=== PATIENT | male | born 1980 | race Caucasian/White ===

== ENCOUNTER 2018-05-08 11:39 | Emergency (ER) | payer MEDICARE, OTHER ==
[~2018-05-08] VITALS: Ht 180.3 cm; Wt 80.3 kg
[~2018-05-08 11:39] MED LIST: CEFD300 PO; CEPH500 PO; CYCL10 PO; Ciprodex Otic7.5 ML LEFTEAR; FAMC250 PO; FANAPT; FANAPT2 MG PO; HYDACE5325 PO; INVEGA SUS156 MG/1 M IM; NAPR500 PO; NAPR550 PO; OLAN5A MM; OLANZAPINE15 MG PO; OXYACE5T PO; PENVK500 PO; RISP1; RISP1 PO; RXHYD5325 PO; SULTRIDS PO; Zithromax250 MG PO; Zofran Odt8 MG SL; [UNRECOGNIZED DRUG - REMARK]; [UNRECOGNIZED DRUG - REMARK]; [UNRECOGNIZED DRUG - REMARK]
[2018-05-17] MEDS ORDERED: OLAN10 PO (17:57)
== END 2018-05-08 14:20 | disposition left against medical advice (07) ==
LOC: ER 11:39
DX: Z53.21 Procedure and treatment not carried out due to patient leaving prior to being seen by health care provider (principal); Z79.899 Other long term (current) drug therapy; Z87.891 Personal history of nicotine dependence
CPT/HCPCS: 99283; 99284

== ENCOUNTER 2018-05-11 10:49 | Emergency (ER) | payer MEDICARE, OTHER ==
[~2018-05-11] VITALS: Ht 180.3 cm; Wt 78.0 kg
== END 2018-05-11 13:56 | disposition home or self-care (01) ==
LOC: ER 10:49
DX: R44.0 Auditory hallucinations (principal); F25.9 Schizoaffective disorder, unspecified; Z87.891 Personal history of nicotine dependence
CPT/HCPCS: 99284

== ENCOUNTER 2018-05-21 07:57 | Emergency (ER) | payer MEDICARE, OTHER ==
[~2018-05-21] VITALS: Ht 180.3 cm; Wt 89.8 kg
[~2018-05-21 07:57] MED LIST changes: +OLAN10 PO
== END 2018-05-21 09:13 | disposition left against medical advice (07) ==
LOC: ER 07:57
DX: F25.9 Schizoaffective disorder, unspecified (principal); Z91.14 Patient's other noncompliance with medication regimen; Z79.899 Other long term (current) drug therapy; Z87.891 Personal history of nicotine dependence
CPT/HCPCS: 99285

== ENCOUNTER 2018-05-23 04:35 | Emergency (ER) | payer MEDICARE, OTHER ==
[~2018-05-23] VITALS: Ht 180.3 cm; Wt 89.8 kg
[2018-05-23] MEDS ORDERED: Zyprexa10 MG PO (05:08)
== END 2018-05-23 05:23 | disposition home or self-care (01) ==
LOC: ER 04:35
DX: F41.9 Anxiety disorder, unspecified (principal); Z91.14 Patient's other noncompliance with medication regimen; F20.9 Schizophrenia, unspecified; Z79.899 Other long term (current) drug therapy; Z87.891 Personal history of nicotine dependence
CPT/HCPCS: 99283

== ENCOUNTER 2018-05-25 08:31 | Emergency (ER) | payer MEDICARE, OTHER ==
[~2018-05-25] VITALS: Ht 180.3 cm; Wt 89.8 kg
[~2018-05-25 08:31] MED LIST changes: +Zyprexa10 MG PO
[2018-05-25] MEDS ORDERED: Veetids 500500 MG PO (08:56)
== END 2018-05-25 09:08 | disposition home or self-care (01) ==
LOC: ER 08:31
DX: K08.89 Other specified disorders of teeth and supporting structures (principal); F20.9 Schizophrenia, unspecified; Z79.899 Other long term (current) drug therapy; Z87.891 Personal history of nicotine dependence
CPT/HCPCS: 99283

== ENCOUNTER 2018-05-27 19:24 | Emergency (ER) | payer MEDICARE, OTHER ==
[~2018-05-27] VITALS: Ht 180.3 cm; Wt 89.8 kg
[~2018-05-27 19:24] MED LIST changes: +Veetids 500500 MG PO
== END 2018-05-27 21:13 | disposition home or self-care (01) ==
LOC: ER 19:24
DX: F41.9 Anxiety disorder, unspecified (principal); F20.9 Schizophrenia, unspecified; Z87.891 Personal history of nicotine dependence
CPT/HCPCS: 99283

== ENCOUNTER 2018-05-31 08:03 | Emergency (ER) | payer MEDICARE, OTHER ==
[~2018-05-31] VITALS: Ht 180.3 cm; Wt 89.8 kg
[2018-05-31] MEDS ORDERED: OLAN10 PO (08:11)
== END 2018-05-31 08:54 | disposition home or self-care (01) ==
LOC: ER 08:03
DX: F41.1 Generalized anxiety disorder (principal); F25.9 Schizoaffective disorder, unspecified; Z79.899 Other long term (current) drug therapy; Z87.891 Personal history of nicotine dependence
CPT/HCPCS: 99283

== ENCOUNTER 2018-05-31 16:48 | Emergency (ER) | payer MEDICARE, OTHER ==
[~2018-05-31] VITALS: Ht 180.3 cm; Wt 89.8 kg
== END 2018-05-31 17:10 | disposition home or self-care (01) ==
LOC: ER 16:48
DX: F41.9 Anxiety disorder, unspecified (principal); Z87.891 Personal history of nicotine dependence
CPT/HCPCS: 99282

== ENCOUNTER 2018-06-06 12:11 | Emergency (ER) | payer MEDICARE, OTHER ==
[~2018-06-06] VITALS: Ht 180.3 cm; Wt 89.8 kg
== END 2018-06-06 13:45 | disposition left against medical advice (07) ==
LOC: ER 12:11
DX: Z53.21 Procedure and treatment not carried out due to patient leaving prior to being seen by health care provider (principal)
CPT/HCPCS: 99281

== ENCOUNTER → 2020-01-26 | Outpatient (CLI) | payer MEDICARE, OTHER ==
[~2020-01-26] MED LIST changes: +FANAPT6 MG PO
[2020-01-26 15:16] LABS: Source, Urine Clean Catch
[2020-01-26 17:16] LABS: Bilirubin, Urine Neg (Neg); Blood, Urine Neg (Neg); Glucose Qualitative, Urine Neg (Neg); Ketones, Urine Neg (Neg); Leukocyte Esterase, Urine Neg (Neg); Nitrite, Urine Neg (Neg); Protein, Urine Neg (Neg); Urobilinogen, Urine NORM (Normal)
[2020-01-26 17:27] LABS: Appearance, Urine Clear (Clear); Color, Urine Pale Yellow (P-Yellow)
== END ==
LOC: LAB SHORT 13:19 → LAB 13:19 → EDSTATUS 01-24 09:50 → LAB FUT 01-24 09:50
PROVIDERS: Nurse Practitioner Family
DX: R39.11 Hesitancy of micturition (principal); R35.0 Frequency of micturition
CPT/HCPCS: 81003

== ENCOUNTER → 2023-03-28 | Outpatient (CLI) | payer MEDICARE, OTHER ==
[2023-03-28 09:07] LABS: Source, Urine Clean Catch
[2023-03-28 10:20] LABS: Appearance, Urine Clear (Clear); Bilirubin, Urine Neg (Neg); Blood, Urine Neg (Neg); Color, Urine Yellow (P-Yellow); Glucose Qualitative, Urine Neg (Neg); Ketones, Urine Neg (Neg); Leukocyte Esterase, Urine Neg (Neg); Nitrite, Urine Neg (Neg); Protein, Urine Neg (Neg); Specific Gravity, Urine 1.015 (1.003-1.022); Urobilinogen, Urine NORM (Normal)
== END ==
LOC: LAB SHORT 08:56 → LAB 08:56
PROVIDERS: Nurse Practitioner Family
DX: R31.9 Hematuria, unspecified (principal)
CPT/HCPCS: 81003

== ENCOUNTER → 2024-05-14 | Outpatient (CLI) | payer MEDICARE, OTHER ==
[2024-05-14 13:48] LABS: Potassium, Urine, Random 7.3 mmol/L (12.0-75.0)
[2024-05-14 13:58] LABS: Creatinine Urine 37.2 mg/dL (27.00-270.00)
[2024-05-16 21:27] LABS: CREATININE, URINE - PER 24H 1110 mg/d (1000-2500); CREATININE, URINE - PER VOLUME 38 mg/dL; HOURS COLLECTED 23 hr; TOTAL VOLUME 2800 mL; URINE, GLUCOSE - PER 24 HR <58 mg/dL (<=499); URINE, GLUCOSE - PER VOLUME <2 mg/dL (<=15)
== END | disposition home or self-care (01) ==
LOC: LAB 07:40 → LAB SHORT 07:40
PROVIDERS: Nurse Practitioner Family
DX: R35.89 Other polyuria (principal)
CPT/HCPCS: 81050; 82436; 82570; 83935; 84133; 84300